=== PATIENT | female | born 1955 | race Caucasian/White ===

== ENCOUNTER → 2016-10-25 | Outpatient (CLI) | payer OTHER ==
[2016-10-25 11:21] LABS: HEMATOCRIT 38.3 % (33.0-46.0); HEMOGLOBIN 12.5 g/dL (10.0-15.0); MCH 29.8 pg (27.0-34.0); MCHC 32.6 gm/dL (32.0-36.5); MCV 91.2 fl (83.0-98.0); MPV 9.5 fl (9.4-12.4); RBC 4.2 M/uL (3.50-5.50); RDW-CV 12.7 % (11.9-14.6); WBC 7.4 K/uL (4.0-11.0)
[2016-10-25 11:33] LABS: ALBUMIN 3.4 gm/dL (3.5-5.0); ALK PHOS 84 IU/L (33-138); ALT 26 IU/L (12-78); ANION GAP 10.4 (10.0-19.0); AST 18 IU/L (10-40); BLOOD UREA NITROGEN 18 mg/dL (6-24); CALCIUM 8.4 mg/dL (8.5-10.5); CHLORIDE 104 mMol/L (96-110); CO2 31 mMol/L (22-32); CREATININE 0.8 mg/dL (0.5-1.1); ESTIMATED GFR (MDRD EQUATION) > 60; POTASSIUM 4.4 mMol/L (3.7-5.1); SODIUM 141 mMol/L (135-145); TOTAL BILIRUBIN 0.3 mg/dL (0.0-1.5); TOTAL PROTEIN 6.6 g/dL (6.0-8.4)
== END | disposition disaster alternative care site (69) ==
LOC: GLAB 10-19 10:35
PROVIDERS: Physician Assistant
DX: Z51.81 Encounter for therapeutic drug level monitoring (principal); Z79.899 Other long term (current) drug therapy